=== PATIENT | female | born 2000 | race Caucasian/White ===

== ENCOUNTER 2024-03-11 19:07 | Inpatient (IN) | payer BC ==
[~2024-03-11 19:07] MED LIST: PRENATAL TABLET PO; SYNTHROID0.075 MG/T PO
[2024-03-12] MEDS ORDERED: ROPivacaine PF 0.2% 200 ML IV ONE ×2 (07:48→22:54)
[2024-03-13] MEDS ORDERED: Phenylephrine 10 MG/ML VIAL ONE (00:20)
[2024-03-13] MEDS ORDERED: EPINEPHrine 1 MG/1 ML Ampule ONE (00:20)
[2024-03-13] MEDS ORDERED: Ketorolac 60 MG/2 ML VIAL IM ONE (00:20)
[2024-03-13] MEDS ORDERED: NS 20 ML IV ONE (00:21)
[2024-03-13] MEDS ORDERED: dexAMETHasone 10 MG/ML VIAL ONE (00:21)
[2024-03-13] MEDS ORDERED: LR 1,000 ML IV ONE (00:21)
[2024-03-13] MEDS ORDERED: Oxytocin 10 UNITS/ML VIAL ONE (00:21)
[2024-03-13] MEDS ORDERED: Meperidine 50 MG/ML 1 ML VIAL ONE (00:35)
== END 2024-03-14 14:35 | disposition home or self-care (01) | DRG 788 ==
LOC: LDRO 19:07 → OB 19:30
PROVIDERS: ADMIT Obstetrics & Gynecology
PROC: 10D00Z1 Extraction of Products of Conception, Low, Open Approach (ICD-10-PCS; principal; 2024-03-13)
PROC: 10D00Z1 Extraction of Products of Conception, Low, Open Approach (ICD-10-PCS; 2024-03-13)
PROC: 3E0P7VZ Introduction of Hormone into Female Reproductive, Via Natural or Artificial Opening (ICD-10-PCS; 2024-03-13)
PROC: 10907ZC Drainage of Amniotic Fluid, Therapeutic from Products of Conception, Via Natural or Artificial Opening (ICD-10-PCS; 2024-03-13)
PROC: 3E033VJ Introduction of Other Hormone into Peripheral Vein, Percutaneous Approach (ICD-10-PCS; 2024-03-13)
DX: O48.0 Post-term pregnancy (principal); O99.284 Endocrine, nutritional and metabolic diseases complicating childbirth; Z3A.40 40 weeks gestation of pregnancy; Z37.0 Single live birth; O76 Abnormality in fetal heart rate and rhythm complicating labor and delivery; Z79.899 Other long term (current) drug therapy; O62.0 Primary inadequate contractions; O77.0 Labor and delivery complicated by meconium in amniotic fluid
CPT/HCPCS: J0171; J0665; J0690; J1100; J1885; J2175; J2371; J2590; J2795; J7120